=== PATIENT | male | born 2005 | race Caucasian/White ===

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

== ENCOUNTER 2023-03-11 20:40 | Emergency (ER) | payer BC ==
[2023-03-11 20:43] VITALS: BP 133/80
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
== END 2023-03-11 20:57 | disposition home or self-care (01) ==
LOC: ER FS 20:44 → MERGE 20:44 → ER FS 20:57
DX: S06.0XAA Concussion with loss of consciousness status unknown, initial encounter (principal); Z28.310 Unvaccinated for COVID-19; V18.4XXA Pedal cycle driver injured in noncollision transport accident in traffic accident, initial encounter; Y93.55 Activity, bike riding
CPT/HCPCS: 99282